=== PATIENT | female | born 1990 | race Caucasian/White ===

== ENCOUNTER 2016-07-01 11:22 | Emergency (ER) | payer OTHER ==
[~2016-07-01] VITALS: Ht 157.5 cm; Wt 96.1 kg
[~2016-07-01 11:22] MED LIST: BUSP5TAB59 PO; CEPH500C PO; ESCI10TA17 PO; MTR/400 PO; QUET1TAB34 PO
[2016-07-01 11:25] VITALS: TEMP 36.4; Ht 157.5 cm; Wt 96.1 kg
[2016-07-01] MEDS ORDERED: BUSP15TA70 PO (12:14)
--- NOTE | 2016-07-01 12:43 | DIAGNOSTIC IMAGING REPORT ---
RIGHT WRIST 4 VIEWS CLINICAL HISTORY: Right wrist pain. FINDINGS: 4 portable views of the right wrist are obtained. No prior studies are available for comparison at the time of dictation. The skeletal structures are well mineralized. There is no radiographic evidence of fracture. The joint spaces of the wrist are well-maintained. The overlying soft tissues are normal in appearance. IMPRESSION: No acute bony abnormality is seen in the right wrist. Electronically signed by: Davon Gale M.D. 07/01/2016 12:42 PM
[2016-07-01 13:04] VITALS: BP 131/75; PULSE 82; O2SAT 98
--- NOTE | 2016-07-01 19:28 | EMERGENCY ROOM VISIT NOTE ---
History First contact with patient: 12:16 Chief Complaint: WRIST PAIN Stated Complaint: R WRIST PAIN History of Present Illness The patient is a 25 year old female who presents to the Emergency Room with complaints of ongoing and worsening right wrist pain. The patient denies any known injury to the wrist. She does serve food as a optimization engineer. She reports pain mostly around the base of the thumb and crossing over the wrist region. She denies any paresthesias or numbness of the hand or fingers. She denies any prior history of hand or wrist fractures. The patient is [id number], and rates her discomfort a 9 out of 10. Review of Systems 10 system review was performed and was negative except for pertinent positives and negatives as indicated in history of present illness Past Medical/Surgical History Medical Problems: (1) Migraine Family History Patient reports no known family medical history. Social History Smoking Status: Current Every Day Smoker Drug Use: none Marital Status: single, in relationship Occupation Status: employed Current/Historical Medications Scheduled Buspirone Hcl (Buspar), 15 MG PO TID Escitalopram (Lexapro), 10 MG PO QAM Quetiapine Fumarate (Seroquel), 100 MG PO HS Allergies Coded Allergies: Sulfa Antibiotics (Verified Allergy, Unknown, hives, 07/01/16) Physical Exam Vital Signs Date Time Temp Pulse Resp B/P Pulse Ox O2 Delivery O2 Flow Rate FiO2 07/01/16 13:04 82 18 131/75 98 07/01/16 11:25 36.4 84 18 109/75 98 Room Air Physical Exam CONSTITUTIONAL: Healthy and well nourished. Alert and oriented X 3 with positive affect. HEENT: Normocephalic, atraumatic. Pupils equal, round and reactive. NECK: Full active range of motion without discomfort. MUSCULOSKELETAL: Examination of the right upper extremity does not show any obvious ecchymosis or soft tissue edema. The patient has tenderness to palpation over the dorsal base of the thumb. Positive Id[place] test. Negative anatomic snuffbox tenderness. Capillary refill is less than 2 seconds. INTEGUMENTARY: No rash or other significant dermatologic conditions noted. NEUROLOGIC: Right hand and fingers are sensory intact. Medical Decision & Procedures ER Provider Diagnostic Interpretation: My interpretation of right wrist x-rays does not show any acute fractures or carpal bone dislocations. Radiologist report is as follows: RIGHT WRIST 4 VIEWS CLINICAL HISTORY: Right wrist pain. FINDINGS: 4 portable views of the right wrist are obtained. No prior studies are available for comparison at the time of dictation. The skeletal structures are well mineralized. There is no radiographic evidence of fracture. The joint spaces of the wrist are well-maintained. The overlying soft tissues are normal in appearance. IMPRESSION: No acute bony abnormality is seen in the right wrist. ED Course Patient history and physical exam were performed. Nurse's notes were reviewed. The patient refused any analgesics while in the emergency department. X-rays of the right wrist were normal. The patient was advised that her clinical exam is consistent with a de Quervain's tenosynovitis. A Velcro thumb spica splint was applied. The patient was encouraged to intermittently apply ice to the thumb and wrist. Ibuprofen and Tylenol in alternating fashion for additional relief. The patient was encouraged to follow-up with orthopedics if symptoms have not improved within the next 1-2 weeks. The patient was happy with plan of care, voiced understanding of all discharge instructions, and rated her pain a 5 out of 10 at the time of discharge. Medical Decision Impression Primary Impression: De Quervain's tenosynovitis, right Departure Information Referrals No Doctor, Assigned (PCP) Patient Instructions A Signature Page, [facility]
== END 2016-07-01 13:08 | disposition home or self-care (01) ==
LOC: C.EDB 11:23 → C.EDD 13:08
DX: M65.4 Radial styloid tenosynovitis [de Quervain] (principal); F17.200 Nicotine dependence, unspecified, uncomplicated

== ENCOUNTER 2016-07-20 10:23 | Emergency (ER) | payer SELFPAY ==
[~2016-07-20] VITALS: Ht 160 cm; Wt 97.4 kg
[~2016-07-20 10:23] MED LIST changes: +BUSP15TA70 PO; -BUSP5TAB59 PO; -CEPH500C PO; -MTR/400 PO
[2016-07-20 10:32] VITALS: TEMP 36.4; Ht 160 cm; Wt 97.4 kg
[2016-07-20] MEDS ORDERED: DEXAMETHASONE SOD INJ 4 MG/ML VIAL IV STA (10:43)
[2016-07-20] MEDS ORDERED: KETOROLAC TROMETHAMINE 30 MG/ML VIAL IV STA (10:43)
[2016-07-20] MEDS ORDERED: ONDANSETRON INJ 2 MG/ML 2 ML VIAL IV STA (10:43)
[2016-07-20] MEDS ORDERED: SODIUM CHLORIDE 0.9% 1000ML 1,000 ML IV STA (10:43)
[2016-07-20] MEDS ORDERED: DiphenhydrAMINE HCL 50 MG/ML VIAL IV STA (10:43)
[2016-07-20] MEDS ORDERED: HYDROmorphone INJ 1 MG/ML SYR IV STA (11:54)
--- NOTE | 2016-07-20 12:41 | EMERGENCY ROOM VISIT NOTE ---
History First contact with patient: 10:38 Chief Complaint: HEADACHE Stated Complaint: MIGRAINE W/BLURRY VISION, NAUSEA History of Present Illness The patient is a 25 year old female who presents to the Emergency Room with complaints of migraine headache for the past 3 days. The patient states the pain is behind her eyes and in the temporal region. The patient also admits to photophobia and some blurred vision. This is typical for her migraine headaches. The patient admits to nausea and only one episode of vomiting. The patient took Zofran which helped some with the nausea. She also took Benadryl and ibuprofen and Tylenol. The patient currently does not have insurance. She has formally been diagnosed with migraine headaches in the past. She had a CT done which ruled out any other abnormality. The patient is unsure of the migraine medicine that she was on in the past. She was on something prophylactically as well as on an as-needed basis. The patient states this is not the worst headache of her life. Review of Systems 10 system review was performed and was negative unless stated otherwise history of present illness. Past Medical/Surgical History Medical Problems: (1) Migraine Family History Patient reports no known family medical history. Social History Smoking Status: Current Every Day Smoker Drug Use: none Marital Status: single, in relationship Occupation Status: employed Current/Historical Medications Scheduled Buspirone Hcl (Buspar), 15 MG PO TID Escitalopram (Lexapro), 10 MG PO QAM Quetiapine Fumarate (Seroquel), 100 MG PO HS Allergies Coded Allergies: Sulfa Antibiotics (Verified Allergy, Unknown, hives, 07/20/16) Physical Exam Vital Signs Date Time Temp Pulse Resp B/P Pulse Ox O2 Delivery O2 Flow Rate FiO2 07/20/16 12:25 70 20 102/59 96 Room Air 07/20/16 11:29 79 20 90/43 97 Room Air 07/20/16 10:32 36.4 74 18 115/71 93 Room Air Physical Exam GENERAL: 25-year-old white female appears in no acute distress MENTAL STATUS: Patient is alert and oriented x3 EYES: PERRLA. EOMs intact. EARS: Canals clear. TMs without fluid level noted. NECK: Supple, no lymphadenopathy noted. No carotid bruits noted. LUNGS: Clear auscultation without wheezes rales or rhonchi. CARDIAC: Regular rate and rhythm without murmur. Pulses is full and equal throughout. ABDOMEN: Positive bowel sounds all 4 quadrants. Soft, nontender to palpation without organomegaly or masses. NEURO:Cranial nerves two through 12 intact. Cerebellar function intact with [id number]. Fine motor intact with alternating finger motions. Medical Decision & Procedures Medications Administered Medications (Trade) Dose Ordered Sig/Martha Route Start Time Stop Time Status Last Admin Dose Admin Sodium Chloride (Nss 1000ml) 1,000 ml @ 999 mls/hr Q1H1M STAT IV 07/20/16 10:43 07/20/16 11:43 DC 07/20/16 11:22 999 MLS/HR Dexamethasone Sodium Phosphate (Decadron Inj) 10 mg NOW STAT IV 07/20/16 10:43 07/20/16 10:47 DC 07/20/16 11:22 10 MG Diphenhydramine HCl (Benadryl Inj) 25 mg NOW STAT IV 07/20/16 10:43 07/20/16 10:47 DC 07/20/16 11:21 25 MG Ondansetron HCl (Zofran Inj) 4 mg NOW STAT IV 07/20/16 10:43 07/20/16 10:47 DC 07/20/16 11:22 4 MG Ketorolac Tromethamine (Toradol Inj) 30 mg NOW STAT IV 07/20/16 10:43 07/20/16 10:47 DC 07/20/16 11:21 30 MG ED Course The patient was evaluated. IV access was obtained. The patient was given 1 L normal saline wide-open. The patient was given Zofran 4 mg IV push, Toradol 30 mg IV, Benadryl 25 mg IV and Decadron 10 mg IV. The patient's EMR was reviewed. The patient had a normal CAT scan of the head done in March 2016. I went into reevaluate the patient and the patient was sleeping. I woke the patient up and she stated that her headache was still an 8 out of 10. I was going to give the patient additional pain medication but her blood pressure was only 102/59. Since she appeared to be resting comfortably I felt that she could be discharged home. The patient was in agreement. Medical Decision Differential includes: Acute intracranial bleed, trauma, meningitis, encephalitis, increased intracranial pressure, mass or mass effect, facial or dental infection, temporal arteritis, CVA, TIA, acute hypertensive emergency, sinusitis, carbon monoxide exposure. The patient presented with her typical migraine headache symptoms therefore no additional diagnostic imaging was performed. Impression Primary Impression: Migraine Departure Information Dispostion Home / Self-Care Condition GOOD Referrals No Doctor, Assigned (PCP) Forms HOME CARE DOCUMENTATION FORM, IMPORTANT VISIT INFORMATION Patient Instructions ED Headache Migraine, My [facility] Additional Instructions Go home and rest in a dark room. Do not drive for the remainder of the day. Recommend follow-up with a PCP to get prophylactic migraine medications if headaches persist. Problem Qualifiers Primary Impression: Migraine
[2016-07-20 13:06] VITALS: BP 97/59; PULSE 88; O2SAT 99
== END 2016-07-20 13:07 | disposition home or self-care (01) ==
LOC: C.EDB 10:24
DX: G43.909 Migraine, unspecified, not intractable, without status migrainosus (principal); F17.200 Nicotine dependence, unspecified, uncomplicated; Z79.899 Other long term (current) drug therapy; Z88.2 Allergy status to sulfonamides

== ENCOUNTER 2016-09-23 00:51 | Emergency (ER) | payer OTHER ==
[~2016-09-23] VITALS: Ht 157.5 cm; Wt 101.0 kg
[2016-09-23 00:54] VITALS: BP 134/83; TEMP 37; Ht 157.5 cm; Wt 101.0 kg
[2016-09-23] MEDS ORDERED: NORCO 5/325MG HOME PACK PO ONE (01:45)
[2016-09-23 01:58] VITALS: PULSE 87; O2SAT 100
--- NOTE | 2016-09-23 06:41 | DIAGNOSTIC IMAGING REPORT ---
LEFT KNEE 3 VIEWS CLINICAL HISTORY: Left knee pain status post trauma COMPARISON: None. DISCUSSION: No acute fractures or dislocations are visualized. There is a nonspecific concavity involving one of the anterior femoral condyles. This may be old or developmental given the lack of a joint effusion. IMPRESSION: Minor can cavity involving one of the anterior femoral condyles. This may be old or developmental given the lack of a joint effusion. No definite acute fractures are visualized on conventional radiographic imaging Electronically signed by: Elkin Villalta M.D. 09/23/2016 6:40 AM Dictated Date/Time: 09/23/2016 6:39 AM
--- NOTE | 2016-09-24 07:44 | EMERGENCY ROOM VISIT NOTE ---
ED Visit Note First contact with patient: 01:03 CHIEF COMPLAINT: knee pain HISTORY OF PRESENT ILLNESS: This 26-year-old female patient presents to the emergency department after sustaining an injury to the left knee about one hour ago. The patient states that she was at work, and was walking into her break room, when she slipped on a newly mopped floor, and injured her knee. The patient did not fall to the ground and was able to ambulate after the injury. The patient denies any other injuries besides their knee. The patient is without significant swelling or bruising. There is pain throughout the kneecap. They rate the pain as dull and 7/10. The patient states they are not comfortably to walk on it. No numbness or tingling. No previous injuries to this knee. No ankle, foot or hip pain. REVIEW OF SYSTEMS: A 6 system review of systems was completed with positives and pertinent negatives listed in the HPI. ALLERGIES: Sulfa MEDICATIONS: See EMR PMH: No chronic medical disease SOCIAL HISTORY: Employed and lives locally PHYSICAL EXAM: Vital Signs: Reviewed Nurse's notes, vital signs stable. GENERAL : White female, no acute distress, but appears in pain, well-developed, well- nourished. MENTAL STATUS: Alert, oriented to person place and time, and cooperative. MUSCULOSKELETAL: The left knee is mildly swollen. There is no significant ecchymosis. There is no gross joint effusion present. The patient is tender medially. There is medial joint line tenderness. The patella does not subluxate. Range of motion is normal. Strength of the quads and hamstrings is 5/ 5. Toro's is normal. Shira's and Anterior Drawer tests are without laxity. There is no laxity with varus and valgus stressing. The foot and toes are warm and well-perfused. Dorsalis pedis pulse 2+. Sensation to pain and light touch is intact. Capillary refill less than 2 seconds. LEFT KNEE 3 VIEWS CLINICAL HISTORY: Left knee pain status post trauma COMPARISON: None. DISCUSSION: No acute fractures or dislocations are visualized. There is a nonspecific concavity involving one of the anterior femoral condyles. This may be old or developmental given the lack of a joint effusion. IMPRESSION: Minor can cavity involving one of the anterior femoral condyles. This may be old or developmental given the lack of a joint effusion. No definite acute fractures are visualized on conventional radiographic imaging EMERGENCY DEPARTMENT COURSE: Physical exam and history were performed. Nursing notes and EMR were reviewed. The patient appears to have suffered a left knee injury at work earlier tonight. X-ray was obtained and does not show obvious acute fracture. The patient will replace any immobilizer and given crutches. She will need to follow with workman's compensation orthopedics. She will be given a home pack of Vicodin and instructed to return to the ER anytime with any new, worsening, or concerning symptoms. Problem List Medical Problems: (1) Migraine Status: Resolved Current/Historical Medications Scheduled Buspirone Hcl (Buspar), 15 MG PO TID Escitalopram (Lexapro), 10 MG PO QAM Quetiapine Fumarate (Seroquel), 100 MG PO HS Allergies Coded Allergies: Sulfa Antibiotics (Verified Allergy, Unknown, hives, 09/23/16) Vital Signs Date Time Temp Pulse Resp B/P Pulse Ox O2 Delivery O2 Flow Rate FiO2 09/23/16 01:58 87 18 100 09/23/16 00:54 37.0 84 18 134/83 97 Medications Administered Medications (Trade) Dose Ordered Sig/Martha Route Start Time Stop Time Status Last Admin Dose Admin Acetaminophen/ Hydrocodone Bitart ([place] 5/325mg Home Pack) 1 homepack UD ONCE PO 09/23/16 01:45 09/23/16 01:46 DC 09/23/16 01:45 1 HOMEPACK Departure Information Impression Primary Impression: Injury of left knee Dispostion Home / Self-Care Condition FAIR Forms HOME CARE DOCUMENTATION FORM, IMPORTANT VISIT INFORMATION Patient Instructions My [facility] Additional Instructions You were seen and evaluated today on an emergency basis only. This is not a substitute for, or an effort to provide, complete comprehensive medical care. It is not possible to recognize and treat all injuries or illnesses in a single emergency department visit. For this reason it is recommended that you followup with your Workmen's Compensation orthopedist in the next 2-3 days for recheck. For baseline pain relief you may alternate ibuprofen and acetaminophen every 4 hours for pain control. Take 600 mg ibuprofen (Advil) and then 4 hours later take 1000 mg acetaminophen (Tylenol). Do not take more than 3000 mg acetaminophen in a single day. [place] (hydrocodone/acetaminophen) 5/325 mg (homepack) every 6 hours as needed for worsening breakthrough pain. Do not drink or drive on [place]. This medication will likely make you tired. Do not take [place] and Tylenol at the same time as both contain acetaminophen. [place] may cause constipation. You may wish to take an deod-qbl-yxlrvju stool softener like Colace if this occurs. Use your knee immobilizer and crutches until otherwise instructed by orthopedics. You are welcome to return to the emergency department anytime with new, worsening, or concerning symptoms.
== END 2016-09-23 01:59 | disposition home or self-care (01) ==
LOC: C.EDB 00:51 → C.EDC 01:59
DX: S89.92XA Unspecified injury of left lower leg, initial encounter (principal); W01.0XXA Fall on same level from slipping, tripping and stumbling without subsequent striking against object, initial encounter; Y92.89 Other specified places as the place of occurrence of the external cause; Y99.0 Civilian activity done for income or pay; Z79.899 Other long term (current) drug therapy; Z88.2 Allergy status to sulfonamides

== ENCOUNTER 2017-02-16 21:16 | Emergency (ER) | payer BC, OTHER ==
[~2017-02-16] VITALS: Ht 160 cm; Wt 107.0 kg
[2017-02-16 21:27] VITALS: TEMP 36.6; Ht 160 cm; Wt 107.0 kg
[2017-02-16] MEDS ORDERED: KETOROLAC TROMETHAMINE 30 MG/ML VIAL IV STA (21:44)
[2017-02-16] MEDS ORDERED: SODIUM CHLORIDE 0.9% 1000ML 1,000 ML IV STA (21:44)
[2017-02-16] MEDS ORDERED: DiphenhydrAMINE HCL 50 MG/ML VIAL IV STA (21:44)
[2017-02-16] MEDS ORDERED: PROCHLORPERAZINE 5 MG/ML 2 ML VIAL IV STA (21:44)
--- NOTE | 2017-02-16 21:56 | EMERGENCY ROOM VISIT NOTE ---
History First contact with patient: 21:34 Chief Complaint: HEADACHE Stated Complaint: MIGRAINE History of Present Illness The patient is a 26 year old female who presents to the Emergency Room with complaints of headache 3 days. The patient states that she has had a migraine headache for the past 3 days. The headache has been gradually worsening. She states the headache is severe and she rates the discomfort a 9/10. She has tried lying in a dark room and has taken naproxen, Motrin, Tylenol, Excedrin Migraine and Zofran without relief. She has associated nausea and light sensitivity. She denies vomiting, numbness/weakness, blurred vision, slurred speech or visual changes. She takes Topamax daily for her migraines but does not have anything to take as needed. She states this feels similar to previous migraines. She reports she was previously diagnosed with migraines and has had them for the past 8 years. She occasionally needs to come to the emergency department for her headaches. She denies recent illness, fevers or neck pain/ stiffness. Review of Systems A complete 10 point review of systems was reviewed with the patient with pertinent positives and negatives as per history of present illness. All else were negative. Past Medical/Surgical History Medical Problems: (1) Migraine Family History Patient reports no known family medical history. Social History Smoking Status: Current Every Day Smoker Drug Use: none Marital Status: single, in relationship Occupation Status: employed Current/Historical Medications Scheduled Buspirone Hcl (Buspar), 15 MG PO TID Escitalopram (Lexapro), 10 MG PO QAM Olanzapine (Zyprexa), 5 MG PO HS Physical Exam Vital Signs Date Time Temp Pulse Resp B/P (MAP) Pulse Ox O2 Delivery O2 Flow Rate FiO2 02/16/17 23:23 70 18 116/68 96 02/16/17 21:27 36.6 69 18 110/68 98 Room Air Physical Exam VITALS: Vitals are noted on the nurse's note and reviewed by myself. Vital signs stable. GENERAL: This is a 26-year-old female, in no acute distress, nondiaphoretic, well-developed well-nourished. HEAD: Normocephalic atraumatic. EARS: External auditory canals clear, tympanic membranes pearly butterfield without erythema or effusion bilaterally. EYES: Pupils equal round and reactive to light and accommodation. Conjunctivae without injection, sclerae without icterus. Extraocular movements intact. NOSE: Patent, turbinates without inflammation or discharge. MOUTH: Mucous membranes moist. Tonsils are not enlarged. Pharynx without erythema or exudate. Tongue does not deviate. NECK: Supple without nuchal rigidity. No lymphadenopathy. No meningismus. HEART: Regular rate and rhythm without murmurs gallops or rubs. LUNGS: Clear to auscultation bilaterally without wheezes, rales or rhonchi. MUSCULOSKELETAL: Full range of motion throughout. Strength 5/5 throughout. NEURO: Patient was alert and oriented to person place and time. Normal sensation to light and sharp touch. No focal neurological deficits. Medical Decision & Procedures Medications Administered Medications (Trade) Dose Ordered Sig/Martha Route Start Time Stop Time Status Last Admin Dose Admin Sodium Chloride 1,000 ml @ 999 mls/hr Q1H1M STAT IV 02/16/17 21:44 02/16/17 22:44 DC 02/16/17 22:23 999 MLS/HR Ketorolac Tromethamine (Toradol Inj) 30 mg NOW STAT IV 02/16/17 21:44 02/16/17 21:49 DC 02/16/17 22:23 30 MG Diphenhydramine HCl (Benadryl Inj) 25 mg NOW STAT IV 02/16/17 21:44 02/16/17 21:49 DC 02/16/17 22:22 25 MG Prochlorperazine Edisylate (Compazine Inj) 10 mg NOW STAT IV 02/16/17 21:44 02/16/17 21:49 DC 02/16/17 22:22 10 MG ED Course The patient was evaluated as above. Labs were drawn and IV access was obtained. Patient was medicated with 1 L normal saline solution, Toradol, Benadryl and Compazine. Patient was reevaluated and was sleeping. She states her headache has improved slightly. She seems very drowsy and I do not comfortable giving her any further medication. She will be discharged home. Discharge instructions were reviewed with the patient. The patient verbalized understanding of my assessment and treatment plan and was discharged home in good condition. Medical Decision The differential diagnosis includes acute intracranial bleed, meningitis, encephalitis, mass or mass effect, sinusitis, infection, tumor, headache, temporal arteritis and carbon monoxide exposure, and migraine. The patient is a 26-year-old female who presents today complaining of a headache similar to previous migraine headaches she has had. There is no evidence of meningitis or encephalitis on exam. This is not the worst headache of her life. Patient was treated with IV Toradol, Compazine and Benadryl with relief. She was encouraged to rest and try kybr-elb-rqpznab medications if her headache returns. Based on the patient's presentation and work up, I feel the patient is stable for outpatient treatment. The patient was educated to return to the emergency department for any worsening of their current condition or new/concerning symptoms. She will follow up with her PCP and neurologist. Medication Reconcilliation Current Medication List: was personally reviewed by me Blood Pressure Screening Patient's blood pressure: Normal blood pressure Impression Primary Impression: Migraine Departure Information Dispostion Home / Self-Care Condition GOOD Referrals No Doctor, Assigned (PCP) Patient Instructions My [facility] Additional Instructions You have been treated in the Emergency Department for a Headache. You have received pain medicine in the emergency department which impairs your ability to operate a vehicle. It is illegal for you to drive after receiving these medicines. For pain control, you can use the following mxrs-zcs-fcxngaf medicines (if >12 yo): - Regular strength (325mg/tab) Tylenol (acetaminophen) 2 tabs every 4-6 hours as needed. Do not exceed 12 tablets in a 24 hour period. Avoid taking more than 4 grams (4000 mg) of Tylenol per day. This includes any other sources of acetaminophen you may take on a regular basis. - Regular strength (200 mg/tab) Advil (ibuprofen) 1-2 tabs every 4-6 hours as needed. Do not exceed a dose of 3200 mg per day. You should relax in a quiet, dark place for the rest of the day. Avoid any possible triggers including: cigarette smoke, caffeine, nicotine, chocolate, wine, beer, loud noises or music, or bright lights. You should schedule a follow-up appointment in 2-3 days with your Primary Care Provider or established Neurologist for further evaluation and treatment of your Headache. Return to the Emergency Department if your current symptoms worsen despite treatment course outlined above, or if you develop any of the following symptoms : intractable pain despite aforementioned treatment course, visual disturbances , loss of vision, unilateral weakness or facial drooping, slurring of speech, loss of coordination, or loss of consciousness.
[2017-02-16] MEDS ORDERED: OLAN-111 PO (22:36)
[2017-02-16 23:23] VITALS: BP 116/68; PULSE 70; O2SAT 96
== END 2017-02-16 23:23 | disposition home or self-care (01) ==
LOC: C.EDB 21:16
DX: G43.909 Migraine, unspecified, not intractable, without status migrainosus (principal); F17.200 Nicotine dependence, unspecified, uncomplicated

== ENCOUNTER 2017-09-13 22:06 | Emergency (ER) | payer SELFPAY ==
[~2017-09-13] VITALS: Ht 160 cm; Wt 105.1 kg
[~2017-09-13 22:06] MED LIST changes: +OLAN-111 PO; -QUET1TAB34 PO
[2017-09-13 22:08] VITALS: TEMP 36.4; Ht 160 cm; Wt 105.1 kg
[2017-09-13] MEDS ORDERED: ABL/5 PO (22:29)
[2017-09-13] MEDS ORDERED: LXP/10 PO (22:29)
[2017-09-13 23:43] VITALS: BP 101/56; PULSE 67; O2SAT 97
--- NOTE | 2017-09-13 23:44 | EMERGENCY ROOM VISIT NOTE ---
History First contact with patient: 22:11 Chief Complaint: WRIST PAIN Stated Complaint: FELL ON L WRIST History of Present Illness The patient is a 26 year old female who presents to the Emergency Room with complaints of fall that occurred last night. The patient states that she took her dog out side to use the bathroom when she became tangled in the leash, and was pulled forward. She attempted to catch herself with her left hand, and ultimately struck the right side of her face on the ground. She did not lose consciousness or have seizure-like activity afterwards. The patient states the pain has just slowly been worsening. She has not taken anything over-the- counter for her discomfort. She does not take blood thinners and has not had previous injury to the wrist. She rates her overall discomfort a 6/10. She does not report other injury. Review of Systems More than 10 systems were reviewed and otherwise negative with the exception of history of present illness. Past Medical/Surgical History Medical Problems: (1) Migraine Family History Patient reports no known family medical history. Social History Smoking Status: Never Smoker Drug Use: none Marital Status: single, in relationship Occupation Status: employed Current/Historical Medications Scheduled Aripiprazole (Abilify), 5 MG PO HS Buspirone Hcl (Buspar), 15 MG PO TID Escitalopram Oxalate (Lexapro), 15 MG PO QAM Physical Exam Vital Signs Date Time Temp Pulse Resp B/P (MAP) Pulse Ox O2 Delivery O2 Flow Rate FiO2 18 22:08 36.4 83 18 120/80 99 Room Air Physical Exam VITALS: Vitals are noted on the nurse's note and reviewed by myself. Vital signs stable. GENERAL: Well-developed, well-nourished, white female, who is in no acute distress and resting comfortably. Patient is cooperative with the examination. HEAD: Small amount of right inferior periorbital edema and ecchymosis noted. There is tenderness in this area. EARS: External ear normal. External auditory canals clear, tympanic membranes pearly butterfield without erythema or effusion bilaterally. EYES: Pupils equal round and reactive to light and accommodation. Conjunctivae without injection, sclerae without icterus. Extraocular movements intact. NECK: Supple without nuchal rigidity. No lymphadenopathy. No thyromegaly. Cervical spine is nontender. HEART: Regular rate and rhythm without murmurs gallops or rubs. LUNGS: Clear to auscultation bilaterally without wheezes, rales or rhonchi. No retractions or accessory muscle use. MUSCULOSKELETAL: There is some tenderness across the left distal radius. No snuffbox tenderness. [employer] strength is 4/5. No other musculoskeletal injury noted. Medical Decision & Procedures ER Provider Diagnostic Interpretation: Preliminary Findings Only See Final Report For Complete Findings CT FACIAL: Right periorbital soft tissue hematoma. The globes are grossly unremarkable. No acute facial fracture. Mild mucosal thickening in the maxillary sinuses. Polyp versus mucous retention cyst in the right maxillary sinus. Mild mucosal thickening in the ethmoid air cells. ED Course Physical exam and history were performed. Nursing notes, EMR, and Medication List were personally reviewed. Patient appears to have fallen and suffered injuries as noted above. A CT scan of her face was performed and is without evidence of facial fracture or bleeding. X-ray was performed and is without significant findings with radiology read pending. The patient will be placed in a splint and asked to follow with orthopedics. Evidently she has followed with [facility] in the past and may continue to do so. She will otherwise be treated conservatively with iqen-bns-[id number] analgesics. We will contact her in the morning if her plain films show additional findings. The patient was pleased with this plan and voiced understanding. She rated her discomfort as 0/ 10 at the time of departure. The chart was completed utilizing [employer] Speech Voice Recognition Software. Grammatical errors, random word insertions, pronoun errors, and incomplete sentences are an occasional consequence of this system due to software limitations, ambient noise, and hardware issues. Any formal questions or concerns about the content, text, or information contained within the body of this dictation should be directly addressed to the provider for clarification. . Medical Decision Differential diagnosis includes, but is not limited to: Sprain, strain, fracture , dislocation, subluxation, contusion, and others Impression Primary Impression: Fall Additional Impressions: Facial injury Injury of left wrist Departure Information Dispostion Home / Self-Care Condition GOOD Forms HOME CARE DOCUMENTATION FORM, Work Instructions, Additional Instructions: Patient was seen and evaluated today in the emergency department fo medical care. IMPORTANT VISIT INFORMATION Patient Instructions My [facility], ED RICE Additional Instructions You were seen and evaluated today on an emergency basis only. This is not a substitute for, or an effort to provide, complete comprehensive medical care. It is not possible to recognize and treat all injuries or illnesses in a single emergency department visit. For this reason it is recommended that you followup with your primary care physician or orthopedist if symptoms persist. For baseline pain relief you may alternate ibuprofen and acetaminophen every 4 hours for pain control. Take 600 mg ibuprofen (Advil) and then 4 hours later take 1000 mg acetaminophen (Tylenol). Do not take more than 3000 mg acetaminophen in a single day. You are welcome to return to the emergency department anytime with new, worsening, or concerning symptoms. Work Instructions Additional Work Instructions: Patient was seen and evaluated today in the emergency department for medical care. Problem Qualifiers Primary Impression: Fall Encounter type: initial encounter Qualified Codes: W19.XXXA - Unspecified fall, initial encounter Additional Impressions: Facial injury Encounter type: initial encounter Qualified Codes: S09.93XA - Unspecified injury of face, initial encounter Injury of left wrist Encounter type: initial encounter Qualified Codes: S69.92XA - Unspecified injury of left wrist, hand and finger(s), initial encounter
--- NOTE | 2017-09-14 06:09 | DIAGNOSTIC IMAGING REPORT ---
L WRIST MIN 3 VIEWS ROUTINE HISTORY: 26 years-old Female Fall. left wrist injury acute left wrist pain status post fall COMPARISON: None available TECHNIQUE: 3 views of the left wrist FINDINGS: The exam is limited secondary to oblique positioning on the lateral view. There is no acute fracture, dislocation or significant degenerative changes. No opaque foreign body. IMPRESSION: Limited study secondary to positioning without fracture identified. The above report was generated using voice recognition software. It may contain grammatical, syntax or spelling errors. Electronically signed by: Lenny Thornton M.D. 09/14/2017 6:08 AM Dictated Date/Time: 09/14/2017 6:06 AM
--- NOTE | 2017-09-14 08:33 | DIAGNOSTIC IMAGING REPORT ---
FACIAL BONES-MXILLOFAC WITHOUT CLINICAL HISTORY: 26 years-old Female presenting with fall. right periorbital injury. Acute facial pain status post fall COMPARISON STUDY: CT head 04/25/2016 TECHNIQUE: High-resolution CT scan of the facial bones is performed. Images are reviewed in the axial, sagittal, and coronal planes. IV contrast was not administered for this examination. A dose lowering technique was utilized adhering to the principles of ALARA. FINDINGS: There is no evidence of facial bone fracture. The bony orbits are intact and the orbital contents are within normal limits. The zygomatic arches, nasal bones, and pterygoid plates are preserved. The maxilla and mandible are intact. The mastoid air cells are clear. Polypoid mucosal thickening of the inferior right os year maxillary antrum. Mild bilateral maxillary sinus mucosal thickening. Mild mucosal thickening is also noted within the bilateral ethmoid air cells. Mild rightward spurring of the nasal septum. The imaged calvarium and upper cervical spine are within normal limits. Partially imaged brain parenchyma is within normal limits. There is mild right periorbital soft tissue swelling without opaque foreign body. IMPRESSION: 1. Mild right periorbital soft tissue swelling without acute facial bone fracture identified. 2. Mild paranasal sinus disease as above. The above report was generated using voice recognition software. It may contain grammatical, syntax or spelling errors. Electronically signed by: Lenny Thornton M.D. 09/14/2017 8:32 AM Dictated Date/Time: 09/14/2017 8:27 AM
== END 2017-09-13 23:43 | disposition home or self-care (01) ==
LOC: C.EDB 22:07 → C.EDA 23:43
DX: S09.93XA Unspecified injury of face, initial encounter (principal); S69.92XA Unspecified injury of left wrist, hand and finger(s), initial encounter; W19.XXXA Unspecified fall, initial encounter; Y92.017 Garden or yard in single-family (private) house as the place of occurrence of the external cause; G43.909 Migraine, unspecified, not intractable, without status migrainosus; Z79.899 Other long term (current) drug therapy

== ENCOUNTER 2018-01-30 14:29 | Emergency (ER) | payer OTHER ==
[~2018-01-30] VITALS: Ht 157.5 cm; Wt 98.4 kg
[~2018-01-30 14:29] MED LIST changes: +ABL/5 PO; -ESCI10TA17 PO; +LXP/10 PO; -OLAN-111 PO
[2018-01-30 14:31] VITALS: TEMP 36.8; Ht 157.5 cm; Wt 98.4 kg
--- NOTE | 2018-01-30 14:36 | EMERGENCY ROOM VISIT NOTE ---
ED Visit Note First contact with patient: 14:33 CHIEF COMPLAINT: Cough, wheezing, chills HISTORY OF PRESENTING ILLNESS: This is a 27-year-old female who presents to the emergency department by private vehicle with complaint of a cough that started yesterday. She states that she feels like she has chest congestion and some tightness, she feels like she is wheezing. She denies any chest pain or shortness of breath. She has had some associated chills today, but did not check her temperature. She has not taken any medications for her symptoms. She reports a history of bronchitis, but denies any history of asthma. She is an occasional smoker. She has had some associated lightheadedness with coughing fits, but denies any persistent dizziness or syncopal episodes. She denies any other symptoms of headache, vision changes, neck pain or stiffness, back pain, abdominal pain, urinary symptoms, or unusual rash. REVIEW OF SYSTEMS: A complete 10 point review of systems was reviewed with the patient with pertinent positives and negatives as per history of present illness. All else were negative. PAST MEDICAL HISTORY: Reviewed in chart, see problem list below. SOCIAL HISTORY: Lives at home. She is an occasional smoker. ALLERGIES: Reviewed in chart, see below. PHYSICAL EXAM: CONSTITUTIONAL: Pleasant and cooperative. No acute distress. Mildly dehydrated , but otherwise well appearing and well nourished. HEENT: Normocephalic, atraumatic. Pupils equal, round and reactive to light, EOMI. TMs normal. Pharynx normal. Tacky mucous membranes. NECK: Supple, full active range of motion without discomfort. RESPIRATORY: Diminished in bases bilaterally with scant expiratory wheezing with auscultation. No crackles, rhonchi or stridor. Not tachypneic. No accessory muscle use and no labored breathing. Equal expansion bilaterally. CARDIOVASCULAR: Regular rate and rhythm with no murmurs, rubs or gallops. Normal peripheral perfusion. No peripheral edema. GASTROINTESTINAL: Soft, nontender, nondistended. No palpable masses or HSM. Bowel sounds present in all quadrants. MUSCULOSKELETAL: Full range of motion of all joints without discomfort. No leg pain or swelling. INTEGUMENTARY: No rash or other significant dermatologic conditions noted. NEUROLOGIC: Alert and oriented X 4 with normal affect. Normal strength and sensation in all 4 extremities. No focal neurologic deficits noted. Normal speech. Normal gait observed. ED COURSE AND MEDICAL DECISION MAKING: CC: Patient presenting with complaint of cough, wheezing, chills DIFFERENTIAL DIAGNOSIS: Includes, but not limited to viral URI, bronchitis, pneumonia, asthma exacerbation/COPD exacerbation, among others. INTERPRETATION OF LABS: No leukocytosis, no anemia, normal platelets, no significant electrolyte abnormalities, normal renal function. Urine negative. IMAGIN view chest x-ray reviewed by myself and read by radiologist and shows no focal consolidation to suggest pneumonia, no acute process by my interpretation. MEDICATION RECONCILIATION: I attest that I have personally reviewed the patient 's current medication list. INITIAL VITAL SIGNS REVIEW: I reviewed the patient's initial vital signs and interpret them as follows: T: Afebrile; BP: Normotensive; HR: Within normal limits; RR: Within normal limits; Pulse Ox: Within normal limits on room air. Blood pressure screening: The patient was found to have normal blood pressure on screening and does not require follow-up for repeat blood pressure check. SUMMARY: Patient was evaluated at bedside, history and physical exam performed. Patient is alert and oriented, in no acute distress, resting calmly in the stretcher. Lungs diminished in bases with scant expiratory wheezing throughout. No respiratory distress. Orders were placed at bedside for labs, urine , IV fluids for hydration as a precaution, DuoNeb treatment, chest x-ray to evaluate for pneumonia. Patient discussed with Dr. Jensen, who agrees with my assessment and plan. Labs and imaging reviewed as above, unremarkable. Patient reassessed multiple times throughout ED stay, she remained stable, patient reports that cough and wheezing are improved after DuoNeb treatment. She was provided with an albuterol inhaler and spacer for home use, educated regarding this medication. Patient was updated on all results and plan for discharge, she was encouraged to follow closely with her PCP. She was encouraged and educated regarding smoking sensation. Patient was also given strict return precautions should her symptoms worsen, she verbalized understanding. Patient was discharged home in stable condition and ambulatory. Problem List Medical Problems: (1) Migraine Status: Resolved Current/Historical Medications Scheduled Aripiprazole (Abilify), 10 MG PO QPM Bupropion (Wellbutrin Sr), 100 MG PO DAILY Buspirone HCl (Buspirone HCl), 15 MG PO TID Escitalopram (Lexapro), 15 MG PO QAM Topiramate (Topamax), 50 MG PO BID Allergies Coded Allergies: Sulfa Antibiotics (Verified Allergy, Severe, hives, 01/30/18) Vital Signs Date Time Temp Pulse Resp B/P (MAP) Pulse Ox O2 Delivery O2 Flow Rate FiO2 01/30/18 16:59 60 16 106/64 97 01/30/18 16:01 72 18 112/67 97 Room Air 01/30/18 14:31 36.8 69 17 109/72 96 Room Air Laboratory Results 01/30/18 14:58 Red Blood Count 4.27, Mean Corpuscular Volume 87.6, Mean Corpuscular Hemoglobin 29.7, Mean Corpuscular Hemoglobin Concent 34.0, Mean Platelet Volume 9.4, Neutrophils (%) (Auto) 61.9, Lymphocytes (%) (Auto) 29.4, Monocytes (%) (Auto) 4.7, Eosinophils (%) (Auto) 3.4, Basophils (%) (Auto) 0.4, Neutrophils # (Auto) 5.21, Lymphocytes # (Auto) 2.48, Monocytes # (Auto) 0.40, Eosinophils # (Auto) 0.29, Basophils # (Auto) 0.03 01/30/18 14:58 Test 01/30/18 14:55 01/30/18 14:58 Urine Test NEG (NEG) White Blood Count 8.43 K/uL (4.8-10.8) Red Blood Count 4.27 M/uL (4.2-5.4) Hemoglobin 12.7 g/dL (12.0-16.0) Hematocrit 37.4 % (37-47) Mean Corpuscular Volume 87.6 fL (80-100) Mean Corpuscular Hemoglobin 29.7 pg (25-34) Mean Corpuscular Hemoglobin Concent 34.0 g/dl (32-36) Platelet Count 322 K/uL (130-400) Mean Platelet Volume 9.4 fL (7.4-10.4) Neutrophils (%) (Auto) 61.9 % Lymphocytes (%) (Auto) 29.4 % Monocytes (%) (Auto) 4.7 % Eosinophils (%) (Auto) 3.4 % Basophils (%) (Auto) 0.4 % Neutrophils # (Auto) 5.21 K/uL (1.4-6.5) Lymphocytes # (Auto) 2.48 K/uL (1.2-3.4) Monocytes # (Auto) 0.40 K/uL (0.11-0.59) Eosinophils # (Auto) 0.29 K/uL (0-0.5) Basophils # (Auto) 0.03 K/uL (0-0.2) RDW Standard Deviation 43.4 fL (36.4-46.3) RDW Coefficient of Variation 13.6 % (11.5-14.5) Immature Granulocyte % (Auto) 0.2 % Immature Granulocyte # (Auto) 0.02 K/uL (0.00-0.02) Anion Gap 5.0 mmol/L (3-11) Est Creatinine Clear Calc Drug Dose 122.4 ml/min Estimated GFR () 124.4 Estimated GFR (Non- 107.3 BUN/Creatinine Ratio 17.0 (10-20) Calcium Level 8.2 mg/dl (8.5-10.1) Medications Administered Medications (Trade) Dose Ordered Sig/Martha Route Start Time Stop Time Status Last Admin Dose Admin Sodium Chloride 1,000 ml @ 999 mls/hr Q1H1M STAT IV 01/30/18 14:43 01/30/18 15:43 DC 01/30/18 15:01 999 MLS/HR Albuterol/ Ipratropium (Duoneb) 3 ml NOW STAT INH 01/30/18 14:43 01/30/18 14:46 DC 01/30/18 15:01 3 ML Albuterol (Ventolin Hfa Inhaler) 2 puffs NOW ONCE INH 01/30/18 16:15 01/30/18 16:16 DC 01/30/18 17:01 2 PUFFS Departure Information Impression Primary Impression: Acute bronchitis Dispostion Home / Self-Care Condition GOOD Referrals Emmanuel Lockwood M.D. (PCP) Patient Instructions ED Bronchitis Asthmatic, My [facility] Additional Instructions You have been evaluated in the emergency department for your cough and chest pain. There is no evidence of pneumonia on your chest x-ray. Use the albuterol inhaler TWO puffs every 4 hours as needed for cough, wheezing , chest tightness. You should also use this before bed to help prevent coughing so that you can sleep better at night. For fevers and/or pain, you can use the following opyj-noy-bmhjbee medicines ( if >12 yo): - Regular strength (325mg/tab) Tylenol (acetaminophen) 2 tabs every 4-6 hours as needed. Do not exceed 10 tablets in a 24 hour period. Avoid taking more than 3000 mg of Tylenol per day. This includes any other sources of acetaminophen you may take on a regular basis. - Regular strength (200 mg/tab) Advil (ibuprofen) 3 tabs every 6-8 hours as needed. Do not exceed a dose of 2400 mg per day. - For best results, alternate dosing of Tylenol and Advil. You may take ealy-hrd-zpeoqmv medications for your cough and congestion, including Robitussin, Delsym, and Mucinex. Take as directed. Drink plenty of fluids to stay well hydrated. Please follow-up with your PCP or at an urgent care in the next few days to be rechecked if your symptoms are not getting any better. Please return to the emergency department if your symptoms worsen, including excessive wheezing or inability to catch your breath, chest pain, coughing up blood, severe dizziness or passing out, fever >101.5, or any other concerns. Work Instructions Return To Work: 3 days Problem Qualifiers Primary Impression: Acute bronchitis Bronchitis organism: unspecified organism Qualified Codes: J20.9 - Acute bronchitis, unspecified
[2018-01-30] MEDS ORDERED: SODIUM CHLORIDE 0.9% 1000ML 1,000 ML IV STA (14:43)
[2018-01-30] MEDS ORDERED: ALBUT/IPRATROP 3MG/0.5MG NEB 3 ML VIAL INH STA (14:43)
[2018-01-30 15:09] LABS: BASO % 0.4 %; BASO ABS # 0.03 K/uL (0-0.2); EOS % 3.4 %; EOS ABS # 0.29 K/uL (0-0.5); HEMATOCRIT 37.4 % (37-47); HEMOGLOBIN 12.7 g/dL (12.0-16.0); IG# 0.02 K/uL (0.00-0.02); LYMPH % 29.4 %; LYMPH ABS # 2.48 K/uL (1.2-3.4); MEAN CELL VOLUME 87.6 fL (80-100); MEAN CORPUSCULAR HEMOGLOBIN 29.7 pg (25-34); MEAN PLATELET VOLUME 9.4 fL (7.4-10.4); MONO % 4.7 %; NEUT % 61.9 %; NEUT ABS # 5.21 K/uL (1.4-6.5); PLATELET COUNT 322 K/uL (130-400); RED CELL DISTRIBUTION WIDTH CV 13.6 % (11.5-14.5); RED CELL DISTRIBUTION WIDTH SD 43.4 fL (36.4-46.3); WHITE BLOOD COUNT 8.43 K/uL (4.8-10.8)
[2018-01-30] MEDS ORDERED: ESCI10TA17 PO (15:13)
[2018-01-30] MEDS ORDERED: TOPI50TA16 PO (15:13)
[2018-01-30] MEDS ORDERED: BSP15 PO (15:13)
[2018-01-30] MEDS ORDERED: ARIP1TAB8 PO (15:13)
[2018-01-30] MEDS ORDERED: BUPRTAB51 PO (15:13)
[2018-01-30 15:26] LABS: CALCIUM 8.2 mg/dl (8.5-10.1); CREATININE 0.77 mg/dl (0.60-1.20); POTASSIUM 3.5 mmol/L (3.5-5.1)
[2018-01-30] MEDS ORDERED: BUPR100T8 PO (15:26)
--- NOTE | 2018-01-30 15:54 | DIAGNOSTIC IMAGING REPORT ---
CHEST 2 VIEWS ROUTINE HISTORY: 27 years-old Female cough, F/C, eval PNA acute cough, fever and chills COMPARISON: Chest radiographs 05/15/2016 TECHNIQUE: PA and lateral views of the chest FINDINGS: Cardiomediastinal and hilar silhouettes are within normal limits. There is no pneumothorax, pleural effusion, focal airspace consolidation or overt pulmonary edema. The bones of the chest appear grossly intact. IMPRESSION: No acute process. The above report was generated using voice recognition software. It may contain grammatical, syntax or spelling errors. Electronically signed by: Lenny Thornton M.D. 01/30/2018 3:52 PM Dictated Date/Time: 01/30/2018 3:52 PM
[2018-01-30] MEDS ORDERED: ALBUTEROL HFA 8 GM INHALER INH ONE (16:15)
[2018-01-30 16:59] VITALS: BP 106/64; PULSE 60; O2SAT 97
== END 2018-01-30 16:59 | disposition home or self-care (01) ==
LOC: C.EDB 14:30 → C.EDC 16:59
DX: J20.9 Acute bronchitis, unspecified (principal); F17.200 Nicotine dependence, unspecified, uncomplicated; Z88.1 Allergy status to other antibiotic agents